=== PATIENT | female | born 1970 | race Hispanic/Latino ===

== ENCOUNTER → 2024-10-20 | Outpatient (CLI) | payer OTHER | END | disposition home or self-care (01) | LOC: RAH 09:04 | PROVIDERS: ATTEND Family Medicine | DX: Z12.31 Encounter for screening mammogram for malignant neoplasm of breast (principal) | CPT/HCPCS: 77067 ==

== ENCOUNTER → 2024-11-06 | Outpatient (CLI) | payer OTHER ==
--- NOTE | 2024-11-07 07:53 | HMCIMG ---
BILATERAL BREAST ULTRASOUND: Clinical history: Follow-up for mammogram due to moderately heterogeneously dense breast Finding: Real-time examination of the both breasts demonstrate heterogeneous echotexture throughout both the breasts without evidence of focal solid or cystic masses. There is bibasilar benign-appearing bilateral axillary lymph nodes a right measures 1.9 x 0.7 x 1.8 cm on the left and measures 1.7 x 0.7 x 1.2 cm. IMPRESSION: No mass or cyst identified. Dense breast. I would recommend annual mammography with tomography with bilateral breast sonogram CATEGORY 2: BENIGN FINDINGS Recommend monthly self breast exam as well as annual clinical examination. A negative x-ray should not delay biopsy if a dominant or clinically suspicious mass is present, since 8-10% of cancers are not identified by mammography. Dense breasts particularly, may obscure an underlying neoplasm. Some of these may be detected clinically and therefore, clinical examination is an essential part of breast evaluation. .
== END | disposition home or self-care (01) ==
LOC: RAH 13:35
PROVIDERS: ATTEND Family Medicine
DX: R92.333 Mammographic heterogeneous density, bilateral breasts (principal); R59.0 Localized enlarged lymph nodes

== ENCOUNTER → 2024-12-04 | Outpatient (CLI) | payer OTHER ==
--- NOTE | 2024-12-05 09:56 | HMCIMG ---
EXAM: CT Cardiac calcium scoring. CLINICAL HISTORY: CAD screening. TECHNIQUE: Thin collimated axial CT cardiac images were obtained. A CT scan is done according to ALARA (As Low As Reasonably Achievable). CONTRAST: None. COMPARISON: None provided. FINDINGS: Calcium Score: VESSEL Number of lesions Volume mm3 Equi. Mass/mg Calcium score LM 0 00.0 --.-- 00.0 LAD 0 00.0 --.-- 00.0 LCX 0 0.0 0.00 0.0 RCA 0 0.0 --.-- 0.0 Total 00 0.0 --.-- 0.0 IMPRESSION: The calcium score is 0. /[place]
== END | disposition home or self-care (01) ==
LOC: RAH 10:58
PROVIDERS: ATTEND Family Medicine
DX: Z13.6 Encounter for screening for cardiovascular disorders (principal)
CPT/HCPCS: 75571